=== PATIENT | female | born 1975 | race Asian ===

== ENCOUNTER 2016-09-20 07:57 | Inpatient (IN) | payer OTHER ==
[~2016-09-20] VITALS: Ht 157.5 cm; Wt 67.3 kg
[2016-09-20] VITALS (35 sets, daily range): BP systolic 62–186; BP diastolic 34–111
[~2016-09-20 07:57] MED LIST: Levothroid,Synthroid PO; Motrin PO; Natalcare Rx,Pramile PO; Percocet 5/325,Endoc PO
[2016-09-20] MEDS ORDERED: PRENATAL TABLE1 EAC3 PO (08:37)
[2016-09-20] MEDS ORDERED: SYNTHROID200 MCG PO (08:37)
[2016-09-20 10:19] LABS: BASOPHIL COUNT 0.1 K/uL (0-0.1); EOSINOPHIL (%) 0.6 % (0-5); EOSINOPHIL COUNT 0.1 K/uL (0-0.3); HEMATOCRIT 41.3 % (36.0-46.0); IMMATURE GRANULOCYTE (%) 3.2 % (0.0-0.7); IMMATURE GRANULOCYTE COUNT 0.4 K/uL; INSTRUMENT ABS NEUTROPHIL CT 9.4 K/uL; MCHC 34.6 G/DL (30.0-36.0); MCV 89.6 FL (83-99); MEAN PLAT.VOLUME 9.6 uM^3 (9.5-12.4); MONOCYTE (%) 7.1 % (3-12); MONOCYTE COUNT 0.9 K/uL (0-0.8); NEUTROPHIL (%) 73.4 % (45-76); NEUTROPHIL COUNT 9.4 K/uL (1.8-6.4); PLATELET COUNT 166 K/uL (156-360); RBC DIS.WIDTH-CV 13.8 % (11.8-14.6); RBC DIS.WIDTH-SD 45.3 % (39-53); RED BLOOD COUNT 4.61 M/uL (3.80-5.20); WHITE BLOOD COUNT 12.8 K/uL (4.1-10.2)
[2016-09-21] VITALS (12 sets, daily range): BP systolic 83–141; BP diastolic 47–82
[2016-09-22 03:53] VITALS: BP 111/71
[2016-09-22 07:11] LABS: BASOPHIL COUNT 0.1 K/uL (0-0.1); EOSINOPHIL (%) 0.3 % (0-5); EOSINOPHIL COUNT 0.1 K/uL (0-0.3); HEMATOCRIT 36.5 % (36.0-46.0); IMMATURE GRANULOCYTE (%) 1.4 % (0.0-0.7); IMMATURE GRANULOCYTE COUNT 0.3 K/uL; INSTRUMENT ABS NEUTROPHIL CT 16.2 K/uL; LYMPHOCYTE COUNT 2.7 K/uL (1.0-2.8); MCH 30.8 PG (29.0-34.0); MCHC 33.7 G/DL (30.0-36.0); MCV 91.3 FL (83-99); MEAN PLAT.VOLUME 9.6 uM^3 (9.5-12.4); MONOCYTE (%) 6.6 % (3-12); MONOCYTE COUNT 1.4 K/uL (0-0.8); NEUTROPHIL (%) 78.3 % (45-76); NEUTROPHIL COUNT 16.2 K/uL (1.8-6.4); PLATELET COUNT 151 K/uL (156-360); RBC DIS.WIDTH-SD 46.8 % (39-53); WHITE BLOOD COUNT 20.7 K/uL (4.1-10.2)
[2016-09-22 07:50] VITALS: BP 104/58
[2016-09-22 11:31] VITALS: BP 111/66
[2016-09-22 15:39] VITALS: BP 125/68
[2016-09-23 07:47] VITALS: BP 123/62
[2016-09-23 10:42] VITALS: BP 116/59
[2016-09-23 15:24] VITALS: BP 122/69
[2016-09-24 07:30] VITALS: BP 135/84
[2016-09-24 15:30] VITALS: BP 122/70
[2016-09-24 22:53] VITALS: BP 144/85
[2016-09-24 23:34] VITALS: BP 132/75
[2016-09-25 07:19] VITALS: BP 135/64
[2016-09-25] MEDS ORDERED: ENDOCET 5-3251 EACH PO (09:28)
[2016-09-25 15:40] VITALS: BP 135/90
== END 2016-09-25 18:18 | disposition home or self-care (01) | DRG 766 ==
LOC: LDRP-OP 07:57 → 2WEST 07:58 → LDRP-OP 08:35 → 2WEST 09-21 02:26 → LDRP-OP 10-27 18:49
PROVIDERS: Obstetrics & Gynecology
DX: O66.41 Failed attempted vaginal birth after previous cesarean delivery (principal); O64.0XX0 Obstructed labor due to incomplete rotation of fetal head, not applicable or unspecified; O34.211 Maternal care for low transverse scar from previous cesarean delivery; O62.1 Secondary uterine inertia; O75.81 Maternal exhaustion complicating labor and delivery; O99.824 Streptococcus B carrier state complicating childbirth; O99.284 Endocrine, nutritional and metabolic diseases complicating childbirth; E89.0 Postprocedural hypothyroidism; Z30.2 Encounter for sterilization; Z3A.39 39 weeks gestation of pregnancy; Z37.0 Single live birth
CPT/HCPCS: 85025; 86900; 86901; 88302; C1755; G0378; J0595; J0690; J1100; J2274; J2405; J2540; J3010; J7120